=== PATIENT | male | born 1980 | race American Indian/Alaskan Native ===

== ENCOUNTER 2022-05-05 15:56 | Emergency (ER) | payer SELFPAY ==
[2022-05-05] MEDS ORDERED: dexAMETHasone 20 MG/5 ML VIAL IV ONE (20:33)
[2022-05-05] MEDS ORDERED: LIDOCAINE-MPF (1%) 10 MG/1 ML VIAL 5 ML INFILTRATI ONE (20:35)
--- NOTE | 2022-05-05 20:59 | Emergency Department Report ---
ED General Adult HPI - General Chief complaint: Neck Pain/Injury Stated complaint: SWOLLEN LYMPH Time Seen by Provider: 05/05/22 20:23 Source: patient Mode of arrival: Ambulatory Limitations: No Limitations - History of Present Illness Initial comments: Patient is a 42-year-old male who presents with a sore throat for the last 7 to 10 days. The last 2 days he has been having trouble swallowing. He is handling his secretions. Denies ill contacts. No rhinorrhea or cough. No fever or chills. He has been swallowing Tylenol. Came here tonight because he noticed lymphadenopathy. Onset/Timin -: days(s) Radiation: non-radiation Severity scale (0 -10): 8 Quality: burning Consistency: constant Improves with: other (Tylenol) Worsens with: other (Swallowing) Associated Symptoms: denies: confusion, chest pain, cough, diaphoresis, fever/chills, headaches, loss of appetite, malaise, nausea/vomiting, rash, seizure, shortness of breath, syncope, weakness Treatments Prior to Arrival: other (Tylenol) - Related Data Allergies Allergy/AdvReac Type Severity Reaction Status Date / Time No Known Allergies Allergy Verified 05/05/22 20:40 ED Review of Systems ROS: Stated complaint: SWOLLEN LYMPH Other details as noted in HPI Comment: All other systems reviewed and negative Constitutional: denies: chills, fever Eyes: denies: vision change ENT: as per HPI. denies: ear pain, dental pain Respiratory: no symptoms reported. denies: cough, orthopnea, shortness of breath Cardiovascular: denies: chest pain, palpitations, edema Endocrine: denies: excessive sweating, flushing, intolerance to cold, intolerance to heat Gastrointestinal: denies: abdominal pain, nausea, vomiting, diarrhea, constipation Genitourinary: denies: urgency, dysuria, frequency Musculoskeletal: denies: back pain Skin: denies: rash, lesions Neurological: denies: headache, weakness Psychiatric: denies: anxiety, depression, visual hallucinations Hematological/Lymphatic: denies: easy bleeding, easy bruising ED Past Medical Hx - Past Medical History Previous Medical History?: No Hx Hypertension: Yes (Earlynot on meds) - Surgical History Past Surgical History?: No - Family History Family history: other (Mother with liver disease) - Social History Smoking Status: Former Smoker Substance Use Type: Alcohol ED Physical Exam - General Limitations: No Limitations General appearance: alert, in no apparent distress - Head Head exam: Present: atraumatic, normocephalic - Eye Eye exam: Present: PERRL, EOMI. Absent: scleral icterus, conjunctival injection - ENT ENT exam: Present: mucous membranes moist, TM's normal bilaterally, other (Marked swelling right peritonsillar area extending into the soft palate and posterior hard palate. Positive trismus. Positive hot potato voice.) - Neck Neck exam: Present: full ROM, lymphadenopathy (Right greater than left). Absent: meningismus - Respiratory Respiratory exam: Present: normal lung sounds bilaterally. Absent: respiratory distress, wheezes, rales - Cardiovascular Cardiovascular Exam: Present: regular rate, normal rhythm, normal heart sounds - GI/Abdominal GI/Abdominal exam: Present: soft. Absent: distended, tenderness - Neurological Exam Neurological exam: Present: alert, oriented X3 - Psychiatric Psychiatric exam: Present: normal affect, normal mood - Skin Skin exam: Present: warm, dry, intact. Absent: rash ED Course Vital Signs 05/05/22 05/06/22 16:22 01:52 Temperature 98.9 F 98.6 F Pulse Rate 83 59 L Respiratory 20 16 Rate Blood Pressure 157/103 135/78 [Right] O2 Sat by Pulse 99 99 Oximetry - Reevaluation(s) Reevaluation #1: 05/05/22 21:02 Call placed to [facility] at 855. Left on hold. Called back 904 and spoke with CC. She will call me back when receiving physician available. Reevaluation #2: 05/05/22 21:44 No callback from [facility] at this time. Called [facility]. They are on diversion and only taking trauma strokes and [place]. 2144: Called [facility]. They are on diversion for everything but trauma. 946 I got a call back from Dr. Morin who is an ENT at [facility]. Although their ER is on diversion as well as MedSurg and ICU she personally would except the patient if we could find a bed for the patient for her to see him. Transfer center states ED ICU and MedSurg all closed. 2151: Called [facility] transfer center but got cut off. Notified charge nurse of need for transfer and she will work on it. 05/05/22 21:55 Reevaluation #3: 05/06/22 00:53 Reevaluated patient. He is resting comfortably and still handling secretions. He feels slight improvement in his symptoms and slight improvement of hot potato voice. - Consultations Consultation #1: 05/06/22 01:[address] Shine Millan at [facility] who agrees to accept this patient. Patient will be transferred. Charge nurse notified to coordinate transfer. ED Medical Decision Making - Medical Decision Making Peritonsillar abscess likely. Given high potato voice/trismus and severe swelling with extension into the posterior hard palate in deviated uvula. Multiple calls to find accepting hospital. Dr. Shine Millan at [facility] graciously agreed to take care of this patient. Transport currently being arranged. Note: First dose of Flagyl given at 2158. - Differential Diagnosis Peritonsillar abscess. Phlegmon. Strep throat. Critical care attestation.: If time is entered above; I have spent that time in minutes in the direct care of this critically ill patient, excluding procedure time. ED Disposition Clinical Impression: Peritonsillar abscess determined by examination Disposition: 04 [facility] Is pt being admited?: No Condition: Stable Instructions: Peritonsillar Abscess Additional Instructions: Per Dr. Millan at [facility]. Referrals: SHIVA LOVETT MD [Primary Care Provider] - 3-5 Days Time of Disposition: 01:55
[2022-05-05] MEDS ORDERED: metroNIDAZOLE/NS 500 MG/100 ML 500 MG/100 ML BAG IV SCH (21:00)
[2022-05-05] MEDS ORDERED: MORPHINE 2 MG/1 ML INJ IV PRN (22:50)
[2022-05-05] MEDS ORDERED: MORPHINE 2 MG/1 ML INJ ONE (22:51)
[2022-05-05] MEDS ORDERED: MORPHINE 2 MG/1 ML INJ IV ONE (22:52)
[2022-05-06 01:54] VITALS: BP 135/78
== END 2022-05-06 02:00 ==
LOC: ED 15:56
DX: J36 Peritonsillar abscess (principal); I10 Essential (primary) hypertension; Z87.891 Personal history of nicotine dependence; F10.20 Alcohol dependence, uncomplicated
CPT/HCPCS: 96365; 96372; 96375; 99284; J0696; J1100; J2270; J3490; J7517